=== PATIENT | female | born 1965 | race Caucasian/White ===

== ENCOUNTER 2020-10-31 09:57 | Emergency (ER) | payer OTHER ==
[~2020-10-31] VITALS: Ht 167.6 cm; Wt 68.0 kg
[2020-10-31] MEDS ORDERED: ABILIFY20 MG PO (10:57)
[2020-10-31] MEDS ORDERED: FROVA2.5 MG PO (10:58)
[2020-10-31] MEDS ORDERED: EMGALITY120 MG/1 M SUB-Q (10:58)
[2020-10-31] MEDS ORDERED: PROMETHAZINE HC25 M1 IM (10:59)
[2020-10-31] MEDS ORDERED: METHOTREXATE2.5 MG SUB-Q (10:59)
[2020-10-31] MEDS ORDERED: LEVOTHYROXINE75 MC1 PO (10:59)
[2020-10-31] MEDS ORDERED: FLOVENT DISKU100 MCG INH (11:00)
[2020-10-31] MEDS ORDERED: VENTOLIN HFA18 GM INH (11:01)
[2020-10-31] MEDS ORDERED: TRILEPTAL300 MG PO (11:01)
[2020-10-31] MEDS ORDERED: K-TAB ER20 MEQ PO (11:02)
[2020-10-31] MEDS ORDERED: ARTHRITIS PAIN100 GM TOP (11:03)
[2020-10-31] MEDS ORDERED: ZESTRIL40 MG PO (11:03)
[2020-10-31] MEDS ORDERED: JYNARQUE PO (11:04)
[2020-10-31] MEDS ORDERED: LIDOCAINE-PRILOC5 GM TOP (11:05)
[2020-10-31] MEDS ORDERED: FOLIC ACID1 MG PO (11:05)
[2020-10-31] MEDS ORDERED: LINZESS145 MCG PO (11:05)
[2020-10-31] MEDS ORDERED: NEUPRO1 EAC1 TD (11:06)
[2020-10-31] MEDS ORDERED: OMEPRAZOLE20 MG PO (11:06)
[2020-10-31] MEDS ORDERED: ALOXI0.25 MG/5 IV (11:06)
[2020-10-31] MEDS ORDERED: AMLODIPINE BES2.5 MG PO (11:07)
--- OUTSIDE RECORDS SUMMARY | 2020-10-31 12:54 | XMS ---
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 currently on file CRITERIA MET - PDMP - [facility] - Has Care Guidelines - 6 ED Visits in 6 Months CARE PROVIDERS [facility] Current PHONE: [phone] ZION GLASER Internal Medicine: Infectious Disease Current PHONE: [phone] Guidelines Source: [facility] Guidelines Date: 08/25/2020 Care Recommendation: For NON-GI issue - Patient advised to utilize Immediate Care option or call PCP team for work in.\T\nbs; Care Coordination: Bradley Sen MD [address] [id number] Other Information: Patient sees GI, Dr. Sen for her ongoing gastroparesis, chronic nausea/ vomiting;\T\nbsp;He manages her nausea meds and provides her w/ frequent IV fluids as outpt given severity of her symptoms. Patient has had multiple prior abdominal surgeries. Patient has repeatedly been advised by Dr. Sen to refrain from diet pepsi and other sodas that upset her stomach, but patient struggles to abide by this recommendation. Patient has daily IV fluids at [facility].\T\nbsp; Additional care guidelines exist for the following facilities: [facility] ( 10/15/2018 ) [place] VISIT COUNT (12 MO.) [address] [place] [address] [place] [id number] RUBI James TOTAL 23 NOTE: Visits indicate total known visits. ED/UCC VISIT TRACKING (12 MO.) 10/31/2020 09:58 RUBI León [place] TYPE: Emergency COMPLAINT: - SKIN PROBLEM, VOMITING [facility] DIAGNOSES: - Bipolar disorder, unspecified - Atherosclerotic heart disease of [place] coronary artery without angina pectoris - Anemia, unspecified - Other specified functional intestinal disorders - Neck Pain - Chest pain, unspecified - Anemia in other chronic diseases classified elsewhere [facility]10/2020 18[facility] [place] [facility] DIAGNOSES: - Evaluation For Positive Culture - Bloodstream infection due to central venous catheter, initial encounter - Arm Pain - Chest Pain 09/10/2020 05:[facility] [place] [place] [facility] DIAGNOSES: - Fever (9 Weeks To 74 Years) - Fever, unspecified - Arm Pain 06/18/2020 23:11 [facility] [place] TYPE: Emergency DIAGNOSES: - Emesis - Gastroparesis - n,v 05/16/2020 18:43 [facility] [place] TYPE: Emergency DIAGNOSES: - Cyclical vomiting syndrome unrelated to migraine - Right upper quadrant pain - Dehydration - Local infection due to central venous catheter, sequela - Emesis 05/16/2020 05:25 [facility] [place] TYPE: Emergency DIAGNOSES: - Gastroparesis - Emesis - N/V 05/15/2020 17:58 [facility] [place] TYPE: Emergency DIAGNOSES: - Other chronic pain - n,v - Gastroparesis - Unspecified abdominal pain - Abdominal Pain - Emesis 05/06/2020 03:41 [facility] [place] TYPE: Emergency DIAGNOSES: - Abnormal Lab - Gastroparesis - Bacteremia - Bipolar disorder, unspecified - Syndrome of inappropriate secretion of antidiuretic hormone - Unspecified abdominal pain - Vomiting, unspecified - Other chronic pain 05/05/2020 15:39 [facility] [place] TYPE: Emergency COMPLAINT: - Fever, unspecified - Other chest pain DIAGNOSES: 1. Pain due to vascular prosthetic devices, implants and grafts, initial encounter 2. Other chest pain 3. Fever, unspecified 4. Pyuria 5. Contact with and (suspected) exposure to COVID19 6. Gastroparesis 7. Diabetes insipidus 8. Syndrome of inappropriate secretion of antidiuretic hormone 05/04/2020 21:42 [facility] [place] TYPE: Emergency DIAGNOSES: - Fever (9 Weeks To 74 Years) - Fever, unspecified 02[facility]26[facility]2020 08[facility] [place] [facility] DIAGNOSES: - Unspecified abdominal pain - Hypo-osmolality and hyponatremia - Noninfective gastroenteritis and colitis, unspecified - Vomiting, unspecified - Bipolar disorder, unspecified - Nausea - Weakness - Other chronic pain - Syndrome of inappropriate secretion of antidiuretic hormone - Abnormal Lab 02/25/2020 13[facility] [place] [facility] DIAGNOSES: - Cramps - Shortness of Breath - Abnormal Lab - Leg Swelling 02/21/2020 06[facility] [place] [facility] DIAGNOSES: - Unspecified abdominal pain - Nausea with vomiting, unspecified - Emesis - Other chronic pain 02/11/2020 15:02 [facility] [place] TYPE: Emergency DIAGNOSES: - Emesis - Nausea with vomiting, unspecified - Gastroparesis - nv 01/30/2020 21:03 [facility] [place] TYPE: Emergency DIAGNOSES: - Leg Swelling - Localized edema - Shortness of Breath - Abnormal Lab 01/24/2020 09:03 [facility] [place] TYPE: Emergency DIAGNOSES: - Evaluation Of Abnormal Diagnostic Test - Abdominal Pain - Nausea with vomiting, unspecified - Gastroparesis - Hypo-osmolality and hyponatremia 01/19/2020 06:38 [facility] [place] TYPE: Emergency DIAGNOSES: - Emesis - Hypo-osmolality and hyponatremia - Gastroparesis - Nausea with vomiting, unspecified 01/18/2020 18:31 Amanda Lang [place] TYPE: Emergency DIAGNOSES: - Nausea, Vomiting, Abd Pain - Emesis - Gastroparesis 01/11/2020 10:43 [facility] [place] [facility] DIAGNOSES: - Vomiting, unspecified - Abnormal Lab - Hypo-osmolality and hyponatremia - Fatigue Plus 3 More Visits INPATIENT VISIT TRACKING (12 MO.) 09/28/2020 00:16 [facility] [place] [facility] DIAGNOSES: - Anemia in other chronic diseases classified elsewhere - Bipolar disorder, unspecified - Atherosclerotic heart disease of [place] coronary artery without angina pectoris - Other specified functional intestinal disorders - Chest pain, unspecified - Anemia, unspecified 09/10/2020 18:51 [facility] [place] TYPE: Respiratory Therapy DIAGNOSES: - Other chest pain - Nausea - Other specified bacterial agents as the cause of diseases classified elsewhere - Vomiting, unspecified - Unspecified asthma, uncomplicated - Anxiety disorder, unspecified - Unspecified infection due to central venous catheter, subsequent encounter - Essential (primary) hypertension - Post-traumatic stress disorder, unspecified - Iron deficiency anemia, unspecified - Unspecified severe protein-calorie malnutrition - Bipolar disorder, unspecified - Major depressive disorder, single episode, unspecified - Infection and inflammatory reaction due to other cardiac and vascular devices, implants and grafts, initial encounter - Unspecified abdominal pain - Hypothyroidism, unspecified - Noninfective gastroenteritis and colitis, unspecified - Bloodstream infection due to central venous catheter, initial encounter - Anemia in other chronic diseases classified elsewhere - Other chronic pain - Gastroparesis - Restless legs syndrome - Bacteremia 05/16/2020 18:43 [facility] [place] TYPE: Internal Medicine DIAGNOSES: - Migraine without aura, not intractable, without status migrainosus - Right upper quadrant pain - Dehydration - Bacteremia - Syndrome of inappropriate secretion of antidiuretic hormone - Abnormal results of liver function studies - Cyclical vomiting syndrome unrelated to migraine - Noninfective gastroenteritis and colitis, unspecified - Local infection due to central venous catheter, sequela 05/06/2020 03:[facility] [place] [facility] DIAGNOSES: - Syndrome of inappropriate secretion of antidiuretic hormone - Infection and inflammatory reaction due to other cardiac and vascular devices, implants and grafts, initial encounter - Other chronic pain - Bipolar disorder, unspecified - Sepsis due to anaerobes - Bacteremia - Vomiting, unspecified - Gastroparesis - Unspecified abdominal pain 02/26/2020 08:[facility] [place] [facility] On[facility] DIAGNOSES: - Noninfective gastroenteritis and colitis, unspecified - Nausea - Bipolar disorder, unspecified - Vomiting, unspecified - Hypo-osmolality and hyponatremia - Other chronic pain - Weakness - Syndrome of inappropriate secretion of antidiuretic hormone - Unspecified abdominal pain [email or web address]
== END 2020-10-31 13:14 | disposition home or self-care (01) ==
LOC: ED 09:57
DX: R11.2 Nausea with vomiting, unspecified (principal); E11.43 Type 2 diabetes mellitus with diabetic autonomic (poly)neuropathy; K31.84 Gastroparesis; F43.10 Post-traumatic stress disorder, unspecified; Z87.891 Personal history of nicotine dependence; Z88.5 Allergy status to narcotic agent; Z88.6 Allergy status to analgesic agent; Z88.0 Allergy status to penicillin; Z88.2 Allergy status to sulfonamides; Z91.040 Latex allergy status; Z88.1 Allergy status to other antibiotic agents; Z88.8 Allergy status to other drugs, medicaments and biological substances; Z79.899 Other long term (current) drug therapy
CPT/HCPCS: 80053; 85025; 96374; 96375; 99284-25; J0696; J0780; J1200; J7030